=== PATIENT | male | born 1985 | race Two or more races ===

== ENCOUNTER 2022-09-17 08:27 | Emergency (ER) | payer MEDICAID, OTHER ==
[~2022-09-17] VITALS: Ht 180.3 cm; Wt 182.0 kg
[2022-09-17 10:45] VITALS: BP 169/99
[2022-09-17] MEDS ORDERED: IBUPROFEN 600 MG TAB PO ONE (10:45)
[2022-09-17] MEDS ORDERED: cefTRIAXone SOD 1,000 MG VL IM ONE (10:45)
[2022-09-17] MEDS ORDERED: LIDOCAINE 1% HCL (LOCAL ANESTH.) INJ 20ML MDV ID ONE (10:45)
[2022-09-17] MEDS ORDERED: ACET1CAP14 PO (10:49)
[2022-09-17] MEDS ORDERED: BACDST PO (10:49)
[2022-09-17] MEDS ORDERED: AMLO-496 PO (12:03)
[2022-09-17] MEDS ORDERED: HYDR25TA4 PO (12:03)
[2022-09-17] MEDS ORDERED: VALS320T15 PO (12:03)
[2022-09-17] MEDS ORDERED: METF-370 PO (13:02)
== END 2022-09-17 13:36 | disposition home or self-care (01) ==
LOC: ER 08:27
DX: L03.115 Cellulitis of right lower limb (principal); I10 Essential (primary) hypertension; E11.9 Type 2 diabetes mellitus without complications
CPT/HCPCS: 36415; 83036; 93971; 96372; 99285; J0696; J2001

== ENCOUNTER 2022-09-21 18:36 | Emergency (ER) | payer MEDICAID ==
[~2022-09-21] VITALS: Ht 180.3 cm; Wt 180.8 kg
[~2022-09-21 18:36] MED LIST: ACET1CAP14 PO; AMLO-496 PO; BACDST PO; HYDR25TA4 PO; METF-370 PO; VALS320T15 PO
[2022-09-21 18:57] VITALS: BP 126/81
[2022-09-21 19:24] LABS: Basophils # (auto) 0.1 10 ^3/uL (0-0.2); Basophils % (auto) 1.1 % (0.0-2.0); Eosinophils # (auto) 0.3 10 ^3/uL (0-0.8); Monocytes # (auto) 0.8 10 ^3/uL (0-1.3); Neutrophils # (auto) 7.1 10 ^3/uL (1.6-8.6); White Blood Cell 11.8 10^3/uL (4.4-10.8)
[2022-09-21 19:36] LABS: Eosinophils % (auto) 2.5 % (0.0-7.0); Hematocrit 47.2 % (41.0-53.0); Hemoglobin 15.5 g/dL (13.5-17.5); Lymphocytes # (auto) 3.6 10 ^3/uL (0.4-5.4); Lymphocytes % (auto) 30.1 % (10.0-50.0); Mean Corpuscular Hemoglobin 28.1 pg (28.0-32.0); Mean Corpuscular Hgb Conc. 32.9 g/dL (32.0-36.0); Mean Corpuscular Volume 85.3 fL (80.0-100.0); Monocytes % (auto) 6.5 % (0.0-12.0); Neutrophils % (auto) 59.8 % (37.0-80.0); Red Blood Cells 5.54 10^6/uL (4.5-5.90); Red Cell Distribution Width 14.1 % (11.8-14.3)
[2022-09-21 19:42] LABS: Albumin 2.7 g/dL (3.4-5.0); Calcium 9.5 mg/dL (8.5-10.1); Potassium 3.9 mmol/L (3.5-5.1)
[2022-09-21 19:45] LABS: BUN/Creatinine Ratio 15.1 (10.0-20.0); Bilirubin, Total 0.3 mg/dL (0.2-1.0); Total Protein 7.7 g/dL (6.4-8.2)
[2022-09-22] MEDS ORDERED: IBUPROFEN 600 MG TAB PO PRN (03:45)
[2022-09-22] MEDS ORDERED: cefTRIAXone 1GM/50ML D5W 50 ML IV ONE (03:45)
[2022-09-22] MEDS ORDERED: MORPHINE SULFATE INJ 2 MG/ml SYRG IV PRN (03:45)
[2022-09-22] MEDS ORDERED: DOCUSATE SOD 100 MG CAP PO PRN (03:45)
[2022-09-22] MEDS ORDERED: hydrALAZINE HCL 20 MG/ML VL IV PRN (03:45)
[2022-09-22] MEDS ORDERED: ONDANSETRON HCL 4 MG/2 ML VIAL IV PRN (03:45)
[2022-09-22] MEDS ORDERED: DEXTROSE (50%) 50ML SYRG IV PRN (03:45)
[2022-09-22] MEDS ORDERED: SODIUM CHLORIDE 0.9% 1,000 ML IV SCH (03:45)
[2022-09-22] MEDS ORDERED: HYDROcodone-ACET 5/325MG TAB PO PRN (03:45)
[2022-09-22] MEDS ORDERED: ACCU-CHEK COMFORT CURVE STRIP VI SCH (07:00)
[2022-09-22] MEDS ORDERED: InsuLIN REG 1unit/0.01ml Soln (100units/ml) SC SCH ×2 (07:00→22:00)
[2022-09-22] MEDS ORDERED: cefTRIAXone 1GM/50ML D5W 50 ML IV SCH (09:00)
[2022-09-22] MEDS ORDERED: ASPirin 81 mg TAB PO SCH (10:00)
== END 2022-09-22 03:47 | disposition left against medical advice (07) ==
LOC: ER 18:36
DX: L03.115 Cellulitis of right lower limb (principal); E11.22 Type 2 diabetes mellitus with diabetic chronic kidney disease; I12.9 Hypertensive chronic kidney disease with stage 1 through stage 4 chronic kidney disease, or unspecified chronic kidney disease; N18.9 Chronic kidney disease, unspecified; N17.9 Acute kidney failure, unspecified; E11.65 Type 2 diabetes mellitus with hyperglycemia; E87.1 Hypo-osmolality and hyponatremia; R70.0 Elevated erythrocyte sedimentation rate; R79.82 Elevated C-reactive protein (CRP); D72.829 Elevated white blood cell count, unspecified
CPT/HCPCS: 36415; 80053; 83880; 85025; 85652; 86141; 93971

== ENCOUNTER 2022-09-22 09:05 | Emergency (ER) | payer MEDICAID ==
[~2022-09-22] VITALS: Ht 180.3 cm; Wt 177.8 kg
[2022-09-22 10:19] LABS: Hematocrit 49.6 % (41.0-53.0); Hemoglobin 16.4 g/dL (13.5-17.5); Mean Corpuscular Hemoglobin 28.2 pg (28.0-32.0); Mean Corpuscular Hgb Conc. 33.2 g/dL (32.0-36.0); Mean Corpuscular Volume 85.1 fL (80.0-100.0); Red Blood Cells 5.83 10^6/uL (4.5-5.90); White Blood Cell 11.2 10^3/uL (4.4-10.8)
[2022-09-22 10:22] LABS: Basophils % (manual) 0 (0.0-2.0); Blast Cells 0; Metamyelocytes % 0; Monocytes % (manual) 0 (0-12); Myelocytes % 0; Promyelocytes % 0; Reactive Lymphocytes 0
[2022-09-22 10:30] LABS: Albumin 2.9 g/dL (3.4-5.0); BUN/Creatinine Ratio 17.3 (10.0-20.0); Calcium 9.5 mg/dL (8.5-10.1); Potassium 4.1 mmol/L (3.5-5.1)
[2022-09-22 10:39] LABS: Bilirubin, Total 0.3 mg/dL (0.2-1.0); CRP High Sensitivity 1.95 mg/dL (< 0.3)
[2022-09-22 11:58] LABS: Band Neutrophils % (manual) 2; Eosinophils % (manual) 6 (0-7); Lymphocytes % (manual) 39 (10.0-50.0)
[2022-09-22 12:13] VITALS: BP 160/84
== END 2022-09-22 12:14 | disposition home or self-care (01) ==
LOC: ER 09:05
DX: E11.65 Type 2 diabetes mellitus with hyperglycemia (principal); L03.115 Cellulitis of right lower limb; N17.9 Acute kidney failure, unspecified; I10 Essential (primary) hypertension; Z79.84 Long term (current) use of oral hypoglycemic drugs; Z79.899 Other long term (current) drug therapy
CPT/HCPCS: 36415; 80053; 85007; 85027; 85652; 86141